=== PATIENT | female | born 1940 ===

== ENCOUNTER 2023-06-06 23:47 | Emergency (ER) | payer MEDICARE ==
[~2023-06-06] VITALS: Ht 144.8 cm; Wt 48.7 kg
[2023-06-07 00:40] VITALS: TEMP 98.3
[2023-06-07] MEDS ORDERED: MEGE400O17 PO (00:40)
[2023-06-07] MEDS ORDERED: METF-1211 PO (00:40)
[2023-06-07] MEDS ORDERED: CALC1SOL2 PO (00:40)
[2023-06-07] MEDS ORDERED: THIA100T80 PO (00:40)
[2023-06-07] MEDS ORDERED: MAGN-169 PO (00:40)
[2023-06-07] MEDS ORDERED: MECL-226 PO (00:40)
[2023-06-07] MEDS ORDERED: FOLI1TAB85 PO (00:40)
[2023-06-07] MEDS ORDERED: DULA1.5P SQ (00:40)
[2023-06-07] MEDS ORDERED: CITA-144 PO (00:40)
[2023-06-07] MEDS ORDERED: FINE10TA PO (00:40)
[2023-06-07] MEDS ORDERED: LEVE500T20 PO (00:40)
[2023-06-07] MEDS ORDERED: LEVO75 PO (00:40)
[2023-06-07] MEDS ORDERED: DAPA10TA PO (00:40)
[2023-06-07] MEDS ORDERED: CYAN500T56 PO (00:40)
[2023-06-07] MEDS ORDERED: EZET10TA57 PO (00:40)
[2023-06-07] MEDS ORDERED: FERR325T27 PO (00:40)
[2023-06-07] MEDS ORDERED: LOVA20TA73 PO (00:40)
[2023-06-07 03:00] VITALS: BP 136/71; PULSE 70; RESP 14
== END 2023-06-07 03:59 | disposition home or self-care (01) ==
LOC: EMS 23:48
DX: S09.90XA Unspecified injury of head, initial encounter (principal); F03.90 Unspecified dementia, unspecified severity, without behavioral disturbance, psychotic disturbance, mood disturbance, and anxiety; E11.9 Type 2 diabetes mellitus without complications; E78.00 Pure hypercholesterolemia, unspecified; E03.9 Hypothyroidism, unspecified; Z98.890 Other specified postprocedural states; Z88.6 Allergy status to analgesic agent; W19.XXXA Unspecified fall, initial encounter; Y93.89 Activity, other specified; Y92.89 Other specified places as the place of occurrence of the external cause; Y99.8 Other external cause status
CPT/HCPCS: 70450; 72125; 99284